=== PATIENT | female | born 1970 | race Caucasian/White ===

== ENCOUNTER 2018-03-05 05:52 | Emergency (ER) | payer SELFPAY, MEDICAID | END 2018-03-05 07:20 | disposition home or self-care (01) | LOC: FTE 05:52 | DX: R05 Cough (principal); I10 Essential (primary) hypertension; E11.9 Type 2 diabetes mellitus without complications | CPT/HCPCS: 99283 ==

== ENCOUNTER 2018-07-16 09:32 | Emergency (ER) | payer SELFPAY | END 2018-07-16 11:24 | disposition home or self-care (01) | LOC: FTE 09:32 | DX: H93.92 Unspecified disorder of left ear (principal); E11.9 Type 2 diabetes mellitus without complications; I10 Essential (primary) hypertension | CPT/HCPCS: 99282 ==